=== PATIENT | female | born 1955 | race Caucasian/White ===

== ENCOUNTER 2023-06-16 16:11 | Emergency (ER) | payer MEDICARE, OTHER, SELFPAY ==
[2023-06-16 16:14] VITALS: BP 217/136
[2023-06-16 16:30] LABS: % Basophils 0.9 % (0-2); % Eosinophils 1.1 % (0-6); % Immature Granulocytes 0.4 % (0-0.5); % Lymphocytes 20.9 % (20.5-51.1); % Monocytes 5.6 % (1.7-9.3); % Neutrophils 71.1 % (42.2-75.2); Absolute Basophils 0.1 10^3/uL (0-0.2); Absolute Eosinophils 0.1 10^3/uL (0-0.7); Absolute Lymphocytes 2.2 10^3/uL (1.2-3.4); Absolute Monocytes 0.6 10^3/uL (0.1-0.6); Absolute Neutrophils 7.5 10^3/uL (1.4-6.5); Hematocrit 39.8 % (37.0-47.0); Hemoglobin 13.4 g/dL (12.0-16.0); Mean Corp Hgb Conc. 33.7 g/dL (33.0-37.0); Mean Corpuscular Hgb 27.6 pg (27.0-31.0); Mean Corpuscular Volume 82.1 fL (81.0-99.0); Mean Platelet Volume 10.1 fL (7.4-10.4); Nucleated Red Blood Cells % 0 %; Platelet Count 317 10^3/uL (130-400); Red Blood Cell Count 4.85 10^6/uL (4.20-5.40); Red Cell Dist. Width 13.8 % (11.5-14.5); White Blood Cell Count 10.6 10^3/uL (4.8-10.8)
[2023-06-16 16:49] VITALS: BP 181/88
[2023-06-16 16:50] LABS: ALT (SGPT) 25 U/L (0-35); AST (SGOT) 60 U/L (14-36); Albumin 4.5 g/dl (3.5-5.0); Alkaline Phosphatase 75 U/L (38-126); Blood Urea Nitrogen 11 mg/dl (7-17); Calcium 9.7 mg/dl (8.4-10.2); Carbon Dioxide 27 mmol/L (22-30); Chloride 101 mmol/L (98-107); Glucose 152 mg/dl (70-99); Potassium 3.9 mmol/L (3.5-5.1); Sodium 138 mmol/L (135-145); Total Bilirubin 0.4 mg/dl (0.2-1.3); Total Protein 7.8 g/dl (6.3-8.2); eGFR > 60.00
[2023-06-16 16:51] VITALS: BMI 29.0
[2023-06-16 17:00] VITALS: BP 155/66
--- NOTE | 2023-06-16 17:22 | ED.CVA ---
History of Present Illness
General
Chief Complaint: CVA/TIA Symptoms
Source: patient
Exam Limitations: none
Time Seen by Provider: 06/16/23 16:51
Nursing documentation reviewed up to this point in time: agreed with
Onset of Stroke Symptoms
Onset of symptoms known: Yes
Date of onset of symptoms: 06/16/23
Travel History
Have you had any contact with someone who has COVID-19?: No
Do you have any symptoms of coronavirus? Fever > 100 degrees, chills, cough, shortness of breath, sore throat, loss of taste or smell, muscle aches, or headache?: No
History of Present Illness
History of Present Illness:
67-year-old female with no past medical history, takes no medications, no past surgeries states she was sitting in her car with her elbow resting on the middle console, talk texting to her daughter who was in the beauty shop getting a hair cut. Her
elbow slipped suddenly off the console and 'it startled me' and she 'couldn't get the sentence out right.' A few moments later, her daughter, having heard the text came out to the car, said pt looked pale, she got her out of the car. Pt states she
felt 'a little unsteady' for a few moments but has felt 'totally normal' since. Denies headache, dizziness, change in vision, nausea, weakness or numbness in extremities. Pt states she thinks the suddenness of her arm slipping and losing her
balance at the same time trying to talk text, startled her so much she couldn't get her words out fluently.
Past History
Past History
ED Past Medical History: Asthma
Social History
Tobacco: Non-smoker
Alcohol: None
Personal:
Living: with family
Review of Systems
Review of Systems
Allergies reviewed?: Yes
All Other Systems: ROS reviewed and negative except as documented in HPI and ROS
Constitutional: Denies fever
Respiratory: Denies trouble breathing
Cardiac: Denies chest pain, diaphoresis, palpitations or syncope
ABD/GI: Denies abdominal pain, nausea, vomiting, diarrhea, constipated or anorexia
: Denies dysuria, frequency, difficulty voiding or urgency
Musculoskeletal: Denies edema
Skin: Reports no symptoms
Neurological: Reports no symptoms
Phy Exam
Physical Exam
Physical Exam:
GENERAL: No acute distress. A&Ox3.
CONSTITUTIONAL: Afebrile.
EYES: PERRL, conjunctivae normal
Neck: Supple
ENMT: moist mucus membranes, Pharynx nl, TMS normal
RESPIRATORY: Regular respirations, nonlabored, lungs clear.
CARDIOVASCULAR: Regular rate and rhythm, no murmurs, no rubs.
GI: Soft, nontender, normal BS
MUSCULOSKELETAL: Full ROM all extremities. Moves with ease. Well perfused.
SKIN: Warm, dry, pink
PSYCH: Normal mood and affect. Well kept, interactive and appropriate
NEUROLOGIC: Awake, alert and oriented. Speech clear. CN 2-12 intact. Finger to nose, heel to richards intact. Strength equal throughout. No focal neurological deficits
Course
Orders/Labs/Results
Orders:
Orders
06/16/23 16:18
Electrocardiogram (*1) Urgent
Reason for Study: Other
Other Reason for Exam: Possible Stroke
EKG- Treatment ONCE
06/16/23 16:21
CT Head W/o Iv Contrast Urgent
Comment:
Reason For Exam: tia symptoms
06/16/23 16:24
Complete Blood Count/With Diff Urgent
Comprehensive Metabolic Panel Urgent
Abnormal Lab Results
06/16/23
16:24
Absolute Neuts (auto) 7.5 H 10^3/uL
(1.4-6.5)
Glucose 152 H mg/dl
(70-99)
AST 60 H U/L
(14-36)
03/27/24 16:24
06/16/23 16:24
Vital Signs
Initial and Last Documented VS:
Initial Vital Signs
Temp Pulse Resp BP Pulse Ox
97.7 F 111 16 217/136 100
06/16/23 16:14 06/16/23 16:14 06/16/23 16:14 06/16/23 16:14 06/16/23 16:14
Last Documented Vital Signs
Temp Pulse Resp BP Pulse Ox
97.7 F 111 16 158/89 97
06/16/23 16:14 06/16/23 16:14 06/16/23 16:14 06/16/23 18:34 06/16/23 18:35
MDM/Problems Addressed
Differential Diagnosis Includes:
TIA, startle reaction
MDM/Problems Addressed:
67-year-old female with no past medical history, takes no medications, no past surgeries states she was sitting in her car with her elbow resting on the middle console, talk texting to her daughter who was in the beauty shop getting a hair cut. Her
elbow slipped suddenly off the console and 'it startled me' and she was flustered as she was talk texting at the time, 'couldn't get the sentence out right.' A few moments later, her daughter, having heard the text came out to the car, said pt
looked pale, she got her out of the car. Pt states she felt 'a little unsteady' for a few moments but has felt 'totally normal' since. Denies headache, dizziness, change in vision, nausea, weakness or numbness in extremities.
Afebrile, NAD
Neuro exam is normal
NIH scale 0
Initial EKG sinus tachycardia at 105 bpm
5:27 PM
CBC normal
CMP normal
Bedside monitor showing heart rate in the 80s
6:[address] radiology report reviewed:
IMPRESSION:
There are no focal acute intracranial abnormalities.
There is mild diffuse cortical atrophy
Patient has had no further symptoms. Stable for discharge. Instructed to take a baby aspirin daily and follow-up with her PCP
Upon discharge pt ambulated out with normal gait.
*Critical Care Note
Total Time (30-74mins, 75-104mins- exclusive of procedures): Not Applicable
ED Attending Note
-
Portions of this chart may have been created with voice recognition software.� Occasional wrong word or��sound alike� substitutions may have occurred due to the inherent limitations of voice recognition software.
Discharge Plan
Departure
Patient Disposition: Home (Routine Discharge)
Date of Disposition: 06/16/23
Time of Disposition: 18:42
Patient with high blood pressure during this ER visit?: Yes
Condition: Good
Discharge Problem:
Episode of change in speech
Instructions: Transient Ischemic Attack (DC)
Prescriptions:
No Action
albuterol sulfate 90 mcg/actuation Hfa Aerosol Inhaler
3 puff INHALATION R DAILYPRN PRN (Reason: sob)
Referrals:
Navneet Khan MD [Family Provider] - Call in 1-3 days for appt
Activity Restrictions/Additional Instructions:
As we discussed, your head CT shows nothing worrisome.
You have no sign of a stroke
I provided you with information for TIA FYI
Your blood work is normal
Take a baby aspirin daily
See your doctor in 1-2 weeks for recheck of blood pressure
Return here immediately for dizziness, weakness, trouble speaking or feeling worse in any way.
Interventions
Interventions:
*Risk Screen - Suicide Last Done: 06/16/23 16:15
*General Assessment Last Done: 06/16/23 16:15
*Neglect/Abuse Screening Last Done: 06/16/23 16:15
ED- Fall Risk Assessment Last Done: 06/16/23 18:55
*ED COVID-19 Vaccine History Last Done: 06/16/23 16:15
*Nursing Disposition Last Done: 06/16/23 18:55
ED- Pulmonary Assessment Last Done: 06/16/23 16:52
ED- Neurological Assessment Last Done: 06/16/23 16:55
ED- Cardiac Assessment Last Done: 06/16/23 16:52
ED Swallowing Screen Last Done: 06/16/23 16:52
Discharge Date and Time
Discharge Date/Time: 06/16/23 18:57
Print Language: QATARI
[2023-06-16 18:34] VITALS: BP 158/89
== END 2023-06-16 18:57 | disposition home or self-care (01) ==
LOC: EMR 16:11
PROVIDERS: Emergency Medicine; EMERGENCY PHYSICIAN Emergency Medicine; FAMILY PHYSICIAN Family Medicine
DX: R41.82 Altered mental status, unspecified (principal)
CPT/HCPCS: 99285; 70450; 80053; 85025; 93005